=== PATIENT | male | born 1985 | race Asian ===

== ENCOUNTER 2016-12-19 10:48 | Outpatient (CLI) | payer OTHER | END 2016-12-19 10:49 | disposition home or self-care (01) | DX: Z00.00 Encounter for general adult medical examination without abnormal findings (principal) ==

== ENCOUNTER 2017-01-07 09:56 | Outpatient (CLI) | payer OTHER | END 2017-01-07 09:57 | disposition home or self-care (01) | DX: R74.8 Abnormal levels of other serum enzymes (principal) ==

== ENCOUNTER 2017-01-12 18:52 | Outpatient (CLI) | payer OTHER ==
--- NOTE | 2017-01-13 12:35 | Ultrasound Report ---
LIMITED ABDOMINAL ULTRASOUND: 01/12/2017 CLINICAL INDICATION: Elevated liver enzymes. TECHNIQUE: Real-time scanning was performed with payable representative static images obtained. FINDINGS: Ultrasound of the right upper quadrant was performed. The liver measures 18 cm. Hepatic echogenicity is increased, compatible with fatty infiltration. No focal parenchymal lesion or intrah epatic biliary dilatation is present. The common bile duct measures 2 mm. The gallbladder is normal . The right kidney measures 10.4 cm, and demonstrates no hydronephrosis. No free fluid is present. IMPRESSION: FATTY INFILTRATION OF THE LIVER. NO EVIDENCE OF CHOLELITHIASIS OR BILIARY OBSTRUCTION. JOB #: [id number] EXT JOB #:[id number]
== END 2017-01-12 18:53 | disposition home or self-care (01) ==
LOC: DI 18:52
PROVIDERS: ATTEND Physician Assistant Medical
DX: K76.0 Fatty (change of) liver, not elsewhere classified (principal)
CPT/HCPCS: 76705

== ENCOUNTER 2017-03-26 20:14 | Outpatient (CLI) | payer OTHER ==
[2017-03-26 19:45] LABS: BILIRUBIN,TOTAL 0.8 mg/dL (0.2-1.0); CHOL/HDL RATIO 3.4 (<5.0); CHOLESTEROL 153 mg/dL; HDL CHOLESTEROL 45 mg/dL; LDL/HDL RATIO 1.9 (<3.6); TOTAL PROTEIN 7.8 g/dL (6.7-8.2); TRIGLYCERIDES 108 mg/dL; VLDL CHOLESTEROL 22 mg/dL
[2017-03-26 19:46] LABS: BILIRUBIN,DIRECT < 0.1 mg/dL (0.1-0.5)
== END 2017-03-26 20:15 | disposition home or self-care (01) ==
LOC: LAB.WCP 20:14
PROVIDERS: ATTEND Physician Assistant Medical
DX: E78.5 Hyperlipidemia, unspecified (principal); K76.0 Fatty (change of) liver, not elsewhere classified; R74.8 Abnormal levels of other serum enzymes
CPT/HCPCS: 36415; 80061; 80076

== ENCOUNTER 2017-07-01 13:46 | Outpatient (CLI) | payer OTHER ==
[2017-07-01 19:32] LABS: BILIRUBIN,DIRECT 0.1 mg/dL (0.1-0.5); CHOL/HDL RATIO 5.2 (<5.0); CHOLESTEROL 234 mg/dL; HDL CHOLESTEROL 45 mg/dL; LDL/HDL RATIO 3.4 (<3.6); TOTAL PROTEIN 7.9 g/dL (6.7-8.2); TRIGLYCERIDES 186 mg/dL; VLDL CHOLESTEROL 37 mg/dL
== END 2017-07-01 13:47 | disposition home or self-care (01) ==
LOC: LAB.WCP 13:46
PROVIDERS: ATTEND Physician Assistant Medical
DX: E78.5 Hyperlipidemia, unspecified (principal); K76.0 Fatty (change of) liver, not elsewhere classified; R74.8 Abnormal levels of other serum enzymes
CPT/HCPCS: 36415; 80061; 80076

== ENCOUNTER 2018-08-02 10:22 | Outpatient (CLI) | payer OTHER ==
[2018-08-02 19:10] LABS: BASOPHILS % (AUTO) 0.7 %; EOSINOPHILS % (AUTO) 0.4 %; HGB - HEMOGLOBIN 14.8 g/dL (14.0-18.0); LYMPHOCYTES # (AUTO) 1.7 10^3/uL (1.5-3.5); LYMPHOCYTES % (AUTO) 30.4 %; MEAN CORPUSCULAR HGB CONC 33.8 g/dL (32.0-36.0); MEAN CORPUSCULAR VOLUME 85.8 fL (80.0-94.0); MEAN PLATELET VOLUME 8.7 fL (7.4-11.4); MONOCYTES # (AUTO) 0.3 10^3/uL (0.0-1.0); MONOCYTES % (AUTO) 5.7 %; NEUTROPHILS # (AUTO) 3.6 10^3/uL (1.5-6.6); NEUTROPHILS % (AUTO) 62.8 %; PLT - PLATELET COUNT 225 10^3/uL (130-450); RED BLOOD COUNT 5.11 10^6/uL (4.70-6.10); RED CELL DISTRIBUTION WIDTH 12.4 % (12.0-15.0); WHITE BLOOD COUNT 5.7 x10^3/uL (4.8-10.8)
[2018-08-02 19:14] LABS: ALBUMIN 4.7 g/dL (3.2-5.5); ALBUMIN/GLOBULIN RATIO 1.5 (1.0-2.2); ALKALINE PHOSPHATASE 54 IU/L (42-121); ALT ALANINE AMINOTRANSFERASE 59 IU/L (10-60); AST ASPARTATE AMINOTRANSFERASE 28 IU/L (10-42); BILIRUBIN,TOTAL 0.8 mg/dL (0.2-1.0); BUN - BLOOD UREA NITROGEN 20 mg/dL (6-20); CALCIUM 9.4 mg/dL (8.5-10.3); CARBON DIOXIDE - CO2 27 mmol/L (21-32); CHLORIDE 104 mmol/L (101-111); CHOL/HDL RATIO 3.5 (<5.0); CHOLESTEROL 158 mg/dL; CREATININE 0.9 mg/dL (0.6-1.2); GFR - MDRD 98 (>89); GLUCOSE 97 mg/dL (70-100); HDL CHOLESTEROL 45 mg/dL; LDL CHOLESTEROL,CALCULATED 96 mg/dL; LDL/HDL RATIO 2.1 (<3.6); SODIUM 139 mmol/L (135-145); TOTAL PROTEIN 7.8 g/dL (6.7-8.2); VLDL CHOLESTEROL 17 mg/dL
== END 2018-08-02 10:23 | disposition home or self-care (01) ==
LOC: LAB.WCP 10:22
PROVIDERS: ATTEND Family Medicine
DX: E78.5 Hyperlipidemia, unspecified (principal); K76.0 Fatty (change of) liver, not elsewhere classified; R74.8 Abnormal levels of other serum enzymes
CPT/HCPCS: 36415; 80053; 80061; 83721; 85025

== ENCOUNTER 2018-10-03 16:04 | Emergency (ER) | payer OTHER ==
--- NOTE | 2018-10-03 17:01 | ED Physician Documentation ---
PD HPI LOWER EXT INJURY - Stated complaint Stated Complaint: L LEG LAC - Chief complaint Chief Complaint: Laceration - History obtained from History obtained from: Patient - History of Present Illness PD HPI LOW EXT INJURY LOCATION: Left, Upper leg Type of injury: Laceration (put knife into pocket and thought it was closed or such, so got lac to the thigh. Mild bleeding. No FB.) Timing - onset: Today Timing - details: Abrupt onset Worsened by: Palpating Associated symptoms: No: Weakness, Numbness Review of Systems Skin: reports: Laceration (s) Neurologic: denies: Focal weakness, Numbness PD PAST MEDICAL HISTORY - Past Medical History Endocrine/Autoimmune: None - Past Surgical History Past Surgical History: No - Present Medications Home Medications: Ambulatory Orders Medication Instructions Recorded Confirmed diphenhydrAMINE [Benadryl] 25 - 50 mg PO Q4-6H PRN #30 capsule 05/09/14 predniSONE [Deltasone] 40 mg PO DAILY 5 Days tablet 05/09/14 - Allergies Allergies/Adverse Reactions: Allergies Allergy/AdvReac Type Severity Reaction Status Date / Time No Known Drug Allergies Allergy Verified 02/13/14 19:28 - Social History Does the pt smoke?: No Smoking Status: Never smoker Does the pt drink ETOH?: Yes Does the pt have substance abuse?: No - Immunizations Immunizations are current?: No PD ED PE NORMAL - Vitals Vital signs reviewed: Yes - General General: Alert and oriented X 3, No acute distress, Well developed/nourished - Derm Derm: Normal color, Warm and dry - Extremities Extremities: Other (left thigh with 1 1/2 cm laceration partial thickness of skin. No FB and not to fatty tissue. ) - Neuro Neuro: No motor deficit, No sensory deficit Results - Vitals Vitals: Oxygen O2 Source Room air PD MEDICAL DECISION MAKING - ED course Complexity details: considered differential (not too deep and can be held with tape/glue, and patient goes for that option. ), d/w patient Departure - Departure Disposition: 01 Home, Self Care Clinical Impression: Laceration of left thigh Qualifiers: Encounter type: initial encounter Qualified Code(s): S71.112A - Laceration without foreign body, left thigh, initial encounter Condition: Stable Record reviewed to determine appropriate education?: Yes Instructions: ED Laceration Ext Sutr Stap Tape Follow-Up: Daniel Parra MD [Primary Care Provider] - Comments: Keep the area clean and dry. Allow the Steri-Strips and glue to fall off on their own after several days or so. You can covered over with a Band-Aid to protect it. Recheck if signs of infection. Discharge Date/Time: 10/03/18 17:28
[2018-10-03 17:29] VITALS: BP 128/86
== END 2018-10-03 17:28 | disposition home or self-care (01) ==
LOC: ED 16:04
DX: S71.112A Laceration without foreign body, left thigh, initial encounter (principal); W26.0XXA Contact with knife, initial encounter
CPT/HCPCS: 99282; 99283

== ENCOUNTER 2019-03-24 11:25 | Outpatient (CLI) | payer OTHER ==
--- NOTE | 2019-03-24 13:27 | XRAY Report ---
Reason: HEEL PAIN,LEFT Procedure Date: 03/24/2019 Accession Number: [id number] / [id number] Procedure: WCP - Foot 2 View LT CPT Code: FULL RESULT: EXAM: LEFT FOOT RADIOGRAPHY EXAM DATE: 03/24/2019 11:43 AM. CLINICAL HISTORY: Heel pain, left. COMPARISON: None. TECHNIQUE: 2 views. FINDINGS: Bones: Normal. No fractures or bone lesions. Joints: Normal. No subluxations. Soft Tissues: Normal. No soft tissue swelling. IMPRESSION: Normal foot radiography. [facility]
== END 2019-03-24 11:26 | disposition home or self-care (01) ==
LOC: DI.WCP 11:25
PROVIDERS: ATTEND Family Medicine
DX: M79.672 Pain in left foot (principal)

== ENCOUNTER 2019-03-24 11:27 | Outpatient (CLI) | payer OTHER ==
--- NOTE | 2019-03-24 13:07 | XRAY Report ---
Reason: LUMBAR RADICULOPATHY Procedure Date: 03/24/2019 Accession Number: [id number] / [id number] Procedure: WCP - Lumbar Spine 2 View CPT Code: FULL RESULT: EXAM: LUMBOSACRAL SPINE RADIOGRAPHY EXAM DATE: 03/24/2019 11:43 AM. CLINICAL HISTORY: Lumbar radiculopathy. COMPARISONS: LUMBAR SPINE 2 VIEW 05/26/2017 1:34 PM. TECHNIQUE: 3 views. FINDINGS: Alignment: Normal. No spondylolisthesis or scoliosis. Bones: 4 [id number] lumbar vertebral bodies are present, a third set of floating ribs is seen on what would normally be designated as L1, counted as T13 for the purpose of this exam. No fractures or bone lesions. Disks: Normal. Disk heights are maintained. Facets: No degenerative changes. Sacroiliac Joints: Unremarkable. Soft Tissues: Normal. The visualized bowel gas pattern is normal. IMPRESSION: Normal lumbar spine radiography. [facility]
== END 2019-03-24 11:28 | disposition home or self-care (01) ==
LOC: DI.WCP 11:27
PROVIDERS: ATTEND Family Medicine
DX: M54.16 Radiculopathy, lumbar region (principal); M79.672 Pain in left foot
CPT/HCPCS: 72100